=== PATIENT | female | born 1970 | race African-American/Black ===

== ENCOUNTER 2021-11-20 07:27 | Emergency (ER) | payer BC ==
[2021-11-20] MEDS ORDERED: GI Cocktail Oral Solution 30 ML PO ONE (08:22)
[2021-11-20] MEDS ORDERED: Ondansetron 4 MG/2 ML SDV IV ONE (08:30)
[2021-11-20] MEDS ORDERED: Sodium Chloride 0.9% 1,000 ML IV ONE (08:30)
[2021-11-20] MEDS ORDERED: Pantoprazole 40 MG Vial IVPUSH ONE (08:31)
[2021-11-20] MEDS ORDERED: Sodium Chloride 0.9% 10 ML Syringe FLUSH PRN ×2 (08:31→09:26)
[2021-11-20] MEDS ORDERED: HYDROmorphone 1 MG/ML Syringe IVPUSH ONE ×2 (08:31→12:03)
[2021-11-20 09:17] LABS: ANION GAP 15.1 mEq/L (7-13); CHLORIDE,CL 101 mmol/L (98-107); SODIUM,NA 137 mmol/L (136-145)
[2021-11-20] MEDS ORDERED: Pantoprazole 40 MG in Sodium Chloride 0.9% 100 ML IV SCH (09:30)
[2021-11-20] MEDS ORDERED: Iopamidol 612 MG/ML 100 ML Bottle IVPUSH ONE (12:03)
[2021-11-20] MEDS ORDERED: Famotidine 20 MG/2 ML SDV IVPUSH ONE (12:03)
[2021-11-20] MEDS ORDERED: Piperacillin/Tazobactam 3.375 GM in Sodium Chloride 0.9% 100 ML IV ONE (12:47)
== END 2021-11-20 14:40 ==
LOC: DL.ED 07:27
DX: K68.9 Other disorders of retroperitoneum (principal); K66.8 Other specified disorders of peritoneum; D64.89 Other specified anemias; N63.20 Unspecified lump in the left breast, unspecified quadrant; I10 Essential (primary) hypertension; Z79.899 Other long term (current) drug therapy; Z20.822 Contact with and (suspected) exposure to COVID-19
CPT/HCPCS: 36415; 74177; 80053; 81003; 82150; 82272; 83605; 83690; 84484; 85025; 86140; 86850; 86900; 86901; 86920; 86922; 87635; 93005; 96365; 96366; 96368; 96375; 96376; 99285; A9270; C9113; J1170; J2405; J2543; J3490; J7030; Q9967; 93010; U0002